=== PATIENT | female | born 1970 | race African-American/Black ===

== ENCOUNTER 2016-09-08 09:02 | Inpatient (IN) | payer MEDICAID ==
[~2016-09-08] VITALS: Ht 175.3 cm; Wt 120.0 kg
[2016-09-08 10:09] LABS: DEFINITIVE VIEW TRANSMISSION; Mean Platelet Volume 7.4 fL (7.4-10.4); SUSPECT VIEW TRANSMISSION
[2016-09-08 10:11] LABS: Hematocrit 24.5 % (36.0-46.0); Mean Corpuscular Hemoglobin 20.6 pg (28.0-32.0); Mean Corpuscular Hgb Conc. 28.7 g/dL (32.0-36.0); Mean Corpuscular Volume 71.9 fL (80.0-100.0); Platelet Count (auto) 236 10^3/uL (140-450); White Blood Cell 4.7 10^3/uL (4.4-10.8)
[2016-09-08 10:14] LABS: Red Cell Distribution Width 24.9 % (11.6-16.0)
[2016-09-08 10:19] LABS: Metamyelocytes % 0; Myelocytes % 0; Promyelocytes % 0; Reactive Lymphocytes 0
[2016-09-08 10:29] LABS: Albumin 4.5 g/dL (3.4-5.0); Bilirubin, Total 0.3 mg/dL (0.2-1.0); Calcium 9.3 mg/dL (8.5-10.1); Potassium 3.6 mmol/L (3.5-5.1); Total Protein 8.4 g/dL (6.4-8.2)
[2016-09-08 10:51] LABS: Anisocytosis Slight; Hypochromia Slight; Platelet Estimate Adequate
[2016-09-08 17:52] VITALS: BP 145/59
[2016-09-08 20:00] VITALS: BP 125/60
[2016-09-08 22:00] VITALS: BP 125/60
[2016-09-08] MEDS: BROMOCRIPTINE MESYLATE 2.5 MG TAB PO SCH (22:00)
[2016-09-08] MEDS: GABAPENTIN 300 MG CAP PO SCH (22:06)
[2016-09-08 22:40] VITALS: BP 131/90
[2016-09-08] MEDS ORDERED: IBUPROFEN 600 MG TAB PO ONE (22:45)
[2016-09-08 22:55] VITALS: BP 137/56
[2016-09-09] VITALS (13 sets, daily range): BP systolic 118–149; BP diastolic 71–91
[2016-09-09] MEDS ORDERED: TEMAZEPAM 15 MG CAP PO ONE ×3 (01:00→23:45)
[2016-09-09] MEDS: GABAPENTIN 300 MG CAP PO SCH ×3 (06:24→21:14)
[2016-09-09] MEDS: BROMOCRIPTINE MESYLATE 2.5 MG TAB PO SCH (10:00)
[2016-09-09] MEDS ORDERED: IBUPROFEN 600 MG TAB PO ONE (12:45)
[2016-09-09 12:52] LABS: DEFINITIVE VIEW TRANSMISSION; Hematocrit 29.6 % (36.0-46.0); Hemoglobin 8.6 g/dL (12.2-16.2); Mean Corpuscular Hemoglobin 22.2 pg (28.0-32.0); Mean Corpuscular Volume 76.5 fL (80.0-100.0); Mean Platelet Volume 8.1 fL (7.4-10.4); Platelet Count (auto) 190 10^3/uL (140-450); SUSPECT VIEW TRANSMISSION; White Blood Cell 4.6 10^3/uL (4.4-10.8)
[2016-09-09 12:54] LABS: Metamyelocytes % 0; Myelocytes % 0; Promyelocytes % 0; Reactive Lymphocytes 0
[2016-09-09 13:54] LABS: Anisocytosis Moderate; Hypochromia Moderate; Platelet Estimate Adequate
[2016-09-09] MEDS: ACETAMINOPHEN 325 MG TAB PO PRN (18:32)
[2016-09-09] MEDS: BROMOCRIPTINE 2.5 MG PO SCH (21:17)
[2016-09-10] MEDS: ACETAMINOPHEN 325 MG TAB PO PRN ×4 (00:12→21:16)
[2016-09-10 05:00] VITALS: BP 123/70
[2016-09-10] MEDS: GABAPENTIN 300 MG CAP PO SCH ×3 (05:09→22:30)
[2016-09-10 06:04] LABS: DEFINITIVE VIEW TRANSMISSION; Hematocrit 30.5 % (36.0-46.0); Hemoglobin 8.8 g/dL (12.2-16.2); Mean Corpuscular Hemoglobin 22.6 pg (28.0-32.0); Mean Corpuscular Hgb Conc. 28.8 g/dL (32.0-36.0); Mean Corpuscular Volume 78.8 fL (80.0-100.0); Mean Platelet Volume 7.8 fL (7.4-10.4); Platelet Count (auto) 133 10^3/uL (140-450); SUSPECT VIEW TRANSMISSION
[2016-09-10 06:40] LABS: Red Cell Distribution Width 25.8 % (11.6-16.0)
[2016-09-10 06:41] LABS: Metamyelocytes % 0; Myelocytes % 0; Promyelocytes % 0; Reactive Lymphocytes 0
[2016-09-10 08:00] VITALS: BP 116/71
[2016-09-10 09:25] VITALS: BP 116/71
[2016-09-10] MEDS: BROMOCRIPTINE 2.5 MG PO SCH ×2 (10:00→22:00)
[2016-09-10] MEDS ORDERED: FERROUS SULFATE 325 MG TAB PO ONE (11:00)
[2016-09-10 12:16] LABS: Anisocytosis Slight; Hypochromia Slight; Platelet Estimate Decreased
[2016-09-10 12:46] VITALS: BP 158/70
[2016-09-10 17:25] VITALS: BP 144/87
[2016-09-10] MEDS ORDERED: FERROUS SULFATE 325 MG TAB PO SCH (18:00)
[2016-09-10] MEDS ORDERED: DOCUSATE SOD 100 MG CAP PO ONE (18:15)
[2016-09-10 21:55] VITALS: BP 156/72
[2016-09-10] MEDS ORDERED: TEMAZEPAM 15 MG CAP PO ONE ×2 (22:00)
[2016-09-11] MEDS: ACETAMINOPHEN 325 MG TAB PO PRN (04:30)
[2016-09-11 05:26] VITALS: BP 142/80
[2016-09-11] MEDS: GABAPENTIN 300 MG CAP PO SCH (06:06)
[2016-09-11 06:20] LABS: DEFINITIVE VIEW TRANSMISSION; Hemoglobin 9.1 g/dL (12.2-16.2); Mean Corpuscular Hemoglobin 22.6 pg (28.0-32.0); Mean Corpuscular Hgb Conc. 28.3 g/dL (32.0-36.0); Mean Corpuscular Volume 79.9 fL (80.0-100.0); Mean Platelet Volume 7.7 fL (7.4-10.4); Platelet Count (auto) 115 10^3/uL (140-450); SUSPECT VIEW TRANSMISSION; White Blood Cell 5.4 10^3/uL (4.4-10.8)
[2016-09-11 06:55] LABS: Red Cell Distribution Width 25.9 % (11.6-16.0)
[2016-09-11 06:56] LABS: Metamyelocytes % 0; Myelocytes % 0; Promyelocytes % 0; Reactive Lymphocytes 0
[2016-09-11 08:00] VITALS: BP 115/72
[2016-09-11 09:12] VITALS: BP 115/72
[2016-09-11 14:04] LABS: Hypochromia Moderate; Microcytosis Slight; Platelet Estimate Decreased; Tear Drop Cells FEW
== END 2016-09-11 11:35 | disposition home or self-care (01) | DRG 663 ==
LOC: ER 09:03 → OVERFLOW 09:04 → EAST 17:23 → CENTRAL 18:01
PROVIDERS: ADMIT Internal Medicine; ATTEND Internal Medicine
PROC: 30233N1 Transfusion of Nonautologous Red Blood Cells into Peripheral Vein, Percutaneous Approach (ICD-10-PCS; principal; 2016-09-08)
DX: D50.9 Iron deficiency anemia, unspecified (principal); M32.9 Systemic lupus erythematosus, unspecified; D35.2 Benign neoplasm of pituitary gland; K59.00 Constipation, unspecified; E66.9 Obesity, unspecified; Z83.3 Family history of diabetes mellitus; Z98.84 Bariatric surgery status; Z88.8 Allergy status to other drugs, medicaments and biological substances; Z98.890 Other specified postprocedural states; Z80.9 Family history of malignant neoplasm, unspecified; Z68.39 Body mass index [BMI] 39.0-39.9, adult
CPT/HCPCS: 36415; 36430; 80053; 83540; 83550; 85007; 85027; 86850; 86870; 86900; 86901; 86902; 86922; 94761